=== PATIENT | female | born 1995 | race Caucasian/White ===

== ENCOUNTER 2024-04-11 23:54 | Emergency (ER) | payer MEDICAID ==
[~2024-04-11] VITALS: Ht 162.6 cm; Wt 65.8 kg
[2024-04-12 00:09] VITALS: BP_SYST 102; PULSE 83; RESP 18; TEMP 98.3; O2SAT 97
[2024-04-12 01:30] LABS: BILIRUBIN,URINE NEGATIVE (NEGATIVE); BLOOD, URINE 3+ (NEGATIVE); COLOR,URINE YELLOW (YELLOW); GLUCOSE,URINE NEGATIVE (NEGATIVE); KETONES,URINE NEGATIVE (NEGATIVE); LEUKOCYTE ESTERASE ,URINE NEGATIVE (NEGATIVE); NITRITE, URINE NEGATIVE (NEGATIVE); PROTEIN URINE NEGATIVE (NEGATIVE); UROBILINOGEN,URINE 0.2 (0.2-1.0)
[2024-04-12 01:54] LABS: CLARITY/URINE HAZY (CLEAR)
[2024-04-12 01:56] LABS: BACTERIA,URINE None Seen /HPF (None Seen); WBC,URINE 0-3 /HPF (0-3)
[2024-04-12 03:50] VITALS: RESP 20
[2024-04-12 03:56] VITALS: BP_SYST 109; PULSE 84; TEMP 98; O2SAT 97
== END 2024-04-12 03:42 | disposition home or self-care (01) ==
LOC: SED 23:54
DX: O20.0 Threatened abortion (principal); O26.891 Other specified pregnancy related conditions, first trimester; R31.9 Hematuria, unspecified; R10.30 Lower abdominal pain, unspecified; Z3A.01 Less than 8 weeks gestation of pregnancy
CPT/HCPCS: 81000; 81001; 81015; 81025; 99283